=== PATIENT | male | born 1960 | race Caucasian/White ===

== ENCOUNTER 2024-07-19 16:05 | Outpatient (CLI) | payer MEDICARE, SELFPAY ==
[2024-07-19 16:32] LABS: Abs Immature Grans 0.01 10^3/uL (0.0-0.06); Absolute Basophil Count 0.04 10^3/uL (0.0-0.2); Absolute Eosinophil Count 0.22 10^3/uL (0.0-0.7); Absolute Lymphocyte Count 1.65 10^3/uL (1.2-3.4); Absolute Monocyte Count 0.64 10^3/uL (0.1-0.8); Absolute Neutrophil Count 3.91 10^3/uL (1.2-6.7); Basophils % 0.6 %; Eosinophils % 3.4 %; HCT 39.3 % (40.0-50.0); HGB 13.7 g/dL (13.5-17.5); Immature Grans % 0.2 %; Lymphocytes % 25.5 %; MCH 32.5 pg (27.0-33.0); MCHC 34.9 % (32.0-36.0); MCV 93 fL (80-95); MPV 10.6 fL (8.0-11.0); Monocytes % 9.9 %; Neutrophils % 60.4 %; Platelet Count 234 10^3/uL (130-400); RBC 4.21 10^6/uL (4.36-5.78); RDW-SD 44.1 fL; WBC 6.47 10^3/uL (4.4-10.8)
[2024-07-19 16:55] LABS: ALT 11 U/L (16-63); AST 19 U/L (15-37); Albumin 3.7 g/dL (3.4-5.0); Alkaline Phosphatase 71 U/L (46-116); Anion Gap 7.5 mmol/L (3-11); BUN 9 mg/dL (7-18); Bilirubin, Total 0.89 mg/dL (0.2-1.0); CO2 29.5 mmol/L (21.0-32.0); CREATININE 1.1 mg/dL (0.70-1.30); Calcium 9.2 mg/dL (8.5-10.1); Chloride 103 mmol/L (98-107); Estimated GFR 74.04 (mL/min/1.73m2); Glucose 103 mg/dL (74-106); Potassium 3.5 mmol/L (3.5-5.1); Sodium 140 mmol/L (136-145)
== END 2024-07-19 16:06 | disposition home or self-care (01) ==
LOC: LBO 16:09
PROVIDERS: Visit Provider Internal Medicine Hematology
DX: C01 Malignant neoplasm of base of tongue (principal)
CPT/HCPCS: 36415; 80053; 83735; 85025

== ENCOUNTER 2024-10-16 02:06 | Outpatient (RCR) | payer MEDICARE, SELFPAY ==
[2024-09-18] MEDS: Normal Saline Flush 10 ML SYR IVP (08:46)
[2024-09-18 09:25] LABS: Abs Immature Grans 0.01 10^3/uL (0.0-0.06); Absolute Basophil Count 0.03 10^3/uL (0.0-0.2); Absolute Eosinophil Count 0.26 10^3/uL (0.0-0.7); Absolute Monocyte Count 0.59 10^3/uL (0.1-0.8); Absolute Neutrophil Count 2.78 10^3/uL (1.2-6.7); Basophils % 0.6 %; Eosinophils % 5.1 %; HCT 37.6 % (40.0-50.0); HGB 12.5 g/dL (13.5-17.5); Immature Grans % 0.2 %; Lymphocytes % 27.6 %; MCH 31.8 pg (27.0-33.0); MCHC 33.2 % (32.0-36.0); MCV 96 fL (80-95); MPV 11.8 fL (8.0-11.0); Monocytes % 11.6 %; Neutrophils % 54.9 %; Platelet Count 211 10^3/uL (130-400); RBC 3.93 10^6/uL (4.36-5.78); RDW 12.6 % (11.8-14.1); WBC 5.07 10^3/uL (4.4-10.8)
[2024-09-18 09:38] LABS: ALT 12 U/L (16-63); AST 19 U/L (15-37); Albumin 3.3 g/dL (3.4-5.0); Alkaline Phosphatase 61 U/L (46-116); Anion Gap 5.6 mmol/L (3-11); BUN 12 mg/dL (7-18); Bilirubin, Total 0.79 mg/dL (0.2-1.0); CO2 32.4 mmol/L (21.0-32.0); CREATININE 0.9 mg/dL (0.70-1.30); Calcium 8.9 mg/dL (8.5-10.1); Chloride 106 mmol/L (98-107); Estimated GFR 94.19 (mL/min/1.73m2); Glucose 119 mg/dL (74-106); Potassium 3.4 mmol/L (3.5-5.1); Sodium 144 mmol/L (136-145); Total Protein 7.1 g/dL (6.4-8.2)
[2024-09-20] MEDS: Normal Saline Flush 10 ML SYR IVP (07:26)
[2024-09-20 07:47] LABS: Abs Immature Grans 0.02 10^3/uL (0.0-0.06); Absolute Basophil Count 0.03 10^3/uL (0.0-0.2); Absolute Eosinophil Count 0.05 10^3/uL (0.0-0.7); Absolute Lymphocyte Count 1.03 10^3/uL (1.2-3.4); Absolute Neutrophil Count 5.26 10^3/uL (1.2-6.7); Basophils % 0.4 %; Eosinophils % 0.7 %; HCT 34.8 % (40.0-50.0); HGB 11.7 g/dL (13.5-17.5); Immature Grans % 0.3 %; Lymphocytes % 14.5 %; MCH 32.1 pg (27.0-33.0); MCHC 33.6 % (32.0-36.0); MCV 95 fL (80-95); MPV 12.1 fL (8.0-11.0); Monocytes % 9.9 %; Neutrophils % 74.2 %; Platelet Count 191 10^3/uL (130-400); RBC 3.65 10^6/uL (4.36-5.78); RDW-SD 45.8 fL; WBC 7.09 10^3/uL (4.4-10.8)
[2024-09-20 08:10] LABS: ALT 55 U/L (16-63); AST 70 U/L (15-37); Alkaline Phosphatase 59 U/L (46-116); Anion Gap 8.4 mmol/L (3-11); BUN 16 mg/dL (7-18); Bilirubin, Total 0.73 mg/dL (0.2-1.0); CO2 27.6 mmol/L (21.0-32.0); Calcium 8.5 mg/dL (8.5-10.1); Chloride 106 mmol/L (98-107); Estimated GFR 83.01 (mL/min/1.73m2); Glucose 137 mg/dL (74-106); Magnesium 1.9 mg/dL (1.8-2.4); Potassium 3.9 mmol/L (3.5-5.1); Sodium 142 mmol/L (136-145); Total Protein 6.5 g/dL (6.4-8.2)
[2024-09-22] MEDS: Normal Saline Flush 10 ML SYR IVP (07:52)
[2024-09-22 07:58] LABS: Abs Immature Grans 0.02 10^3/uL (0.0-0.06); Absolute Basophil Count 0.01 10^3/uL (0.0-0.2); Absolute Lymphocyte Count 0.55 10^3/uL (1.2-3.4); Absolute Monocyte Count 0.41 10^3/uL (0.1-0.8); Absolute Neutrophil Count 5.96 10^3/uL (1.2-6.7); Basophils % 0.1 %; HCT 34.1 % (40.0-50.0); HGB 11.7 g/dL (13.5-17.5); Immature Grans % 0.3 %; Lymphocytes % 7.9 %; MCH 31.6 pg (27.0-33.0); MCHC 34.3 % (32.0-36.0); MCV 92 fL (80-95); MPV 12.1 fL (8.0-11.0); Monocytes % 5.9 %; Neutrophils % 85.8 %; Platelet Count 186 10^3/uL (130-400); RDW 12.7 % (11.8-14.1); WBC 6.95 10^3/uL (4.4-10.8)
[2024-09-22 08:15] LABS: ALT 31 U/L (16-63); AST 28 U/L (15-37); Alkaline Phosphatase 57 U/L (46-116); Anion Gap 11.6 mmol/L (3-11); BUN 22 mg/dL (7-18); Bilirubin, Total 0.67 mg/dL (0.2-1.0); CO2 26.4 mmol/L (21.0-32.0); CREATININE 1.1 mg/dL (0.70-1.30); Calcium 8.6 mg/dL (8.5-10.1); Chloride 103 mmol/L (98-107); Estimated GFR 74.04 (mL/min/1.73m2); Glucose 148 mg/dL (74-106); Magnesium 1.6 mg/dL (1.8-2.4); Potassium 3.4 mmol/L (3.5-5.1); Sodium 141 mmol/L (136-145); Total Protein 6.4 g/dL (6.4-8.2)
[2024-09-25] MEDS: Normal Saline Flush 10 ML SYR IVP (08:09)
[2024-09-25 08:26] LABS: Abs Immature Grans 0.03 10^3/uL (0.0-0.06); Absolute Basophil Count 0.01 10^3/uL (0.0-0.2); Absolute Eosinophil Count 0.03 10^3/uL (0.0-0.7); Absolute Lymphocyte Count 0.73 10^3/uL (1.2-3.4); Basophils % 0.2 %; Eosinophils % 0.6 %; HCT 34.6 % (40.0-50.0); HGB 11.6 g/dL (13.5-17.5); Immature Grans % 0.6 %; Lymphocytes % 14.9 %; MCH 31.2 pg (27.0-33.0); MCHC 33.5 % (32.0-36.0); MCV 93 fL (80-95); MPV 12.1 fL (8.0-11.0); Monocytes % 8.2 %; Neutrophils % 75.5 %; Platelet Count 154 10^3/uL (130-400); RBC 3.72 10^6/uL (4.36-5.78); RDW 12.4 % (11.8-14.1); RDW-SD 42.5 fL
[2024-09-25 08:38] LABS: ALT 24 U/L (16-63); AST 25 U/L (15-37); Albumin 2.8 g/dL (3.4-5.0); Alkaline Phosphatase 57 U/L (46-116); Anion Gap 7.9 mmol/L (3-11); BUN 12 mg/dL (7-18); Bilirubin, Total 0.76 mg/dL (0.2-1.0); CO2 29.1 mmol/L (21.0-32.0); CREATININE 0.8 mg/dL (0.70-1.30); Calcium 8.5 mg/dL (8.5-10.1); Chloride 103 mmol/L (98-107); Estimated GFR 97.61 (mL/min/1.73m2); Glucose 105 mg/dL (74-106); Magnesium 1.7 mg/dL (1.8-2.4); Potassium 3.1 mmol/L (3.5-5.1); Sodium 140 mmol/L (136-145); Total Protein 6.2 g/dL (6.4-8.2)
[2024-10-02] MEDS: Normal Saline Flush 10 ML SYR IVP (07:42)
[2024-10-02 08:48] LABS: Absolute Basophil Count 0.01 10^3/uL (0.0-0.2); Absolute Eosinophil Count 0.01 10^3/uL (0.0-0.7); Absolute Lymphocyte Count 0.48 10^3/uL (1.2-3.4); Absolute Monocyte Count 0.26 10^3/uL (0.1-0.8); Absolute Neutrophil Count 2.06 10^3/uL (1.2-6.7); Basophils % 0.4 %; Eosinophils % 0.4 %; HCT 37.4 % (40.0-50.0); HGB 12.7 g/dL (13.5-17.5); MCH 31.6 pg (27.0-33.0); MCV 93 fL (80-95); MPV 10.8 fL (8.0-11.0); Monocytes % 9.2 %; Platelet Count 165 10^3/uL (130-400); RBC 4.02 10^6/uL (4.36-5.78); RDW 12.4 % (11.8-14.1); RDW-SD 42.7 fL; WBC 2.82 10^3/uL (4.4-10.8)
[2024-10-02 09:05] LABS: ALT 12 U/L (16-63); AST 17 U/L (15-37); Albumin 2.9 g/dL (3.4-5.0); Alkaline Phosphatase 48 U/L (46-116); Anion Gap 7.8 mmol/L (3-11); BUN 7 mg/dL (7-18); CO2 33.2 mmol/L (21.0-32.0); CREATININE 0.8 mg/dL (0.70-1.30); Calcium 8.7 mg/dL (8.5-10.1); Chloride 103 mmol/L (98-107); Estimated GFR 97.61 (mL/min/1.73m2); Glucose 109 mg/dL (74-106); Magnesium 1.6 mg/dL (1.8-2.4); Potassium 3.2 mmol/L (3.5-5.1); Sodium 144 mmol/L (136-145); Total Protein 6.1 g/dL (6.4-8.2)
[2024-10-09 08:45] LABS: Absolute Basophil Count 0.01 10^3/uL (0.0-0.2); Absolute Eosinophil Count 0.01 10^3/uL (0.0-0.7); Absolute Lymphocyte Count 0.34 10^3/uL (1.2-3.4); Absolute Monocyte Count 0.28 10^3/uL (0.1-0.8); Basophils % 0.9 %; Eosinophils % 0.9 %; HGB 13.6 g/dL (13.5-17.5); Lymphocytes % 32.1 %; MCH 31.6 pg (27.0-33.0); MCHC 33.2 % (32.0-36.0); MCV 95 fL (80-95); MPV 10.6 fL (8.0-11.0); Monocytes % 26.4 %; Platelet Count 156 10^3/uL (130-400); RBC 4.31 10^6/uL (4.36-5.78); RDW 13.2 % (11.8-14.1); RDW-SD 45.5 fL
[2024-10-09 09:01] LABS: ALT 10 U/L (16-63); AST 26 U/L (15-37); Albumin 3.2 g/dL (3.4-5.0); Alkaline Phosphatase 46 U/L (46-116); BUN 12 mg/dL (7-18); Bilirubin, Total 0.44 mg/dL (0.2-1.0); Calcium 9.2 mg/dL (8.5-10.1); Chloride 106 mmol/L (98-107); Estimated GFR 83.01 (mL/min/1.73m2); Glucose 91 mg/dL (74-106); Magnesium 1.8 mg/dL (1.8-2.4); Potassium 3.8 mmol/L (3.5-5.1); Sodium 145 mmol/L (136-145); Total Protein 6.7 g/dL (6.4-8.2)
[2024-10-09 09:06] LABS: Neutrophils % 39.7 %
[2024-10-09 09:39] LABS: Absolute Neutrophil Count 0.42 10^3/uL (1.2-6.7); WBC 1.06 10^3/uL (4.4-10.8)
[2024-10-09] MEDS: Normal Saline Flush 10 ML SYR IVP (11:52)
[2024-10-16] MEDS: Normal Saline Flush 10 ML SYR IVP (08:35)
[2024-10-16 08:48] LABS: Abs Immature Grans 0.02 10^3/uL (0.0-0.06); Absolute Basophil Count 0.01 10^3/uL (0.0-0.2); Absolute Eosinophil Count 0.01 10^3/uL (0.0-0.7); Absolute Lymphocyte Count 0.28 10^3/uL (1.2-3.4); Absolute Monocyte Count 0.31 10^3/uL (0.1-0.8); Absolute Neutrophil Count 2.22 10^3/uL (1.2-6.7); Basophils % 0.4 %; Eosinophils % 0.4 %; HCT 39.9 % (40.0-50.0); HGB 13.6 g/dL (13.5-17.5); Immature Grans % 0.7 %; Lymphocytes % 9.8 %; MCH 31.5 pg (27.0-33.0); MCHC 34.1 % (32.0-36.0); MCV 92 fL (80-95); Monocytes % 10.9 %; Neutrophils % 77.8 %; Platelet Count 156 10^3/uL (130-400); RBC 4.32 10^6/uL (4.36-5.78); RDW 13.4 % (11.8-14.1); RDW-SD 45.1 fL; WBC 2.85 10^3/uL (4.4-10.8)
[2024-10-16 09:34] LABS: ALT 11 U/L (16-63); AST 25 U/L (15-37); Albumin 2.7 g/dL (3.4-5.0); Alkaline Phosphatase 52 U/L (46-116); Anion Gap 9.9 mmol/L (3-11); BUN 16 mg/dL (7-18); Bilirubin, Total 0.67 mg/dL (0.2-1.0); CO2 31.1 mmol/L (21.0-32.0); CREATININE 0.9 mg/dL (0.70-1.30); Chloride 105 mmol/L (98-107); Estimated GFR 94.19 (mL/min/1.73m2); Glucose 106 mg/dL (74-106); Magnesium 1.8 mg/dL (1.8-2.4); Potassium 3.4 mmol/L (3.5-5.1); Sodium 146 mmol/L (136-145); Total Protein 6.7 g/dL (6.4-8.2)
== END 2024-10-17 23:59 | disposition home or self-care (01) ==
LOC: INF 02:06
PROVIDERS: Visit Provider Internal Medicine Hematology
DX: C01 Malignant neoplasm of base of tongue (principal)
CPT/HCPCS: 36591; 80053; 83735; 85025

== ENCOUNTER 2024-11-13 10:05 | Outpatient (RCR) | payer MEDICARE, MEDICAID, SELFPAY ==
[2024-10-23] MEDS: Normal Saline Flush 10 ML SYR IVP (08:34)
[2024-10-23 08:51] LABS: Abs Immature Grans 0.04 10^3/uL (0.0-0.06); Absolute Basophil Count 0.02 10^3/uL (0.0-0.2); Absolute Eosinophil Count 0.02 10^3/uL (0.0-0.7); Absolute Lymphocyte Count 0.46 10^3/uL (1.2-3.4); Absolute Monocyte Count 0.56 10^3/uL (0.1-0.8); Absolute Neutrophil Count 2.93 10^3/uL (1.2-6.7); Basophils % 0.5 %; Eosinophils % 0.5 %; HCT 38.7 % (40.0-50.0); HGB 13.1 g/dL (13.5-17.5); Lymphocytes % 11.4 %; MCH 31.5 pg (27.0-33.0); MCHC 33.9 % (32.0-36.0); MCV 93 fL (80-95); MPV 10.3 fL (8.0-11.0); Monocytes % 13.9 %; Neutrophils % 72.7 %; Platelet Count 238 10^3/uL (130-400); RBC 4.16 10^6/uL (4.36-5.78); RDW 13.3 % (11.8-14.1); RDW-SD 45.2 fL; WBC 4.03 10^3/uL (4.4-10.8)
[2024-10-23 09:18] LABS: ALT 17 U/L (16-63); AST 20 U/L (15-37); Albumin 2.8 g/dL (3.4-5.0); Alkaline Phosphatase 49 U/L (46-116); Anion Gap 2.6 mmol/L (3-11); BUN 10 mg/dL (7-18); Bilirubin, Total 0.84 mg/dL (0.2-1.0); CO2 34.4 mmol/L (21.0-32.0); CREATININE 0.9 mg/dL (0.70-1.30); Calcium 8.9 mg/dL (8.5-10.1); Chloride 109 mmol/L (98-107); Estimated GFR 94.19 (mL/min/1.73m2); Glucose 106 mg/dL (74-106); Magnesium 1.9 mg/dL (1.8-2.4); Potassium 3.3 mmol/L (3.5-5.1); Sodium 146 mmol/L (136-145); Total Protein 6.3 g/dL (6.4-8.2)
[2024-10-24 08:52] LABS: Abs Immature Grans 0.02 10^3/uL (0.0-0.06); Absolute Basophil Count 0.02 10^3/uL (0.0-0.2); Absolute Eosinophil Count 0.01 10^3/uL (0.0-0.7); Absolute Lymphocyte Count 0.23 10^3/uL (1.2-3.4); Absolute Monocyte Count 0.49 10^3/uL (0.1-0.8); Absolute Neutrophil Count 2.89 10^3/uL (1.2-6.7); Basophils % 0.5 %; Eosinophils % 0.3 %; HCT 35.7 % (40.0-50.0); Immature Grans % 0.5 %; Lymphocytes % 6.3 %; MCH 31.3 pg (27.0-33.0); MCHC 33.6 % (32.0-36.0); MCV 93 fL (80-95); MPV 10.7 fL (8.0-11.0); Monocytes % 13.4 %; Platelet Count 199 10^3/uL (130-400); RBC 3.83 10^6/uL (4.36-5.78); RDW 13.4 % (11.8-14.1); WBC 3.66 10^3/uL (4.4-10.8)
[2024-10-24 09:08] LABS: ALT 19 U/L (16-63); AST 24 U/L (15-37); Albumin 2.3 g/dL (3.4-5.0); Alkaline Phosphatase 49 U/L (46-116); Anion Gap 1.6 mmol/L (3-11); BUN 10 mg/dL (7-18); Bilirubin, Total 0.76 mg/dL (0.2-1.0); CO2 33.4 mmol/L (21.0-32.0); CREATININE 0.8 mg/dL (0.70-1.30); Calcium 8.1 mg/dL (8.5-10.1); Chloride 108 mmol/L (98-107); Estimated GFR 97.61 (mL/min/1.73m2); Glucose 99 mg/dL (74-106); Magnesium 1.8 mg/dL (1.8-2.4); Potassium 3.1 mmol/L (3.5-5.1); Sodium 143 mmol/L (136-145); Total Protein 5.8 g/dL (6.4-8.2)
[2024-10-26 08:26] LABS: Abs Immature Grans 0.01 10^3/uL (0.0-0.06); Absolute Basophil Count 0.02 10^3/uL (0.0-0.2); Absolute Eosinophil Count 0.02 10^3/uL (0.0-0.7); Absolute Lymphocyte Count 0.29 10^3/uL (1.2-3.4); Absolute Monocyte Count 0.44 10^3/uL (0.1-0.8); Absolute Neutrophil Count 2.07 10^3/uL (1.2-6.7); Basophils % 0.7 %; Eosinophils % 0.7 %; HCT 36.8 % (40.0-50.0); HGB 12.3 g/dL (13.5-17.5); Immature Grans % 0.4 %; Lymphocytes % 10.2 %; MCH 31.3 pg (27.0-33.0); MCHC 33.4 % (32.0-36.0); MCV 94 fL (80-95); Monocytes % 15.4 %; Neutrophils % 72.6 %; Platelet Count 210 10^3/uL (130-400); RBC 3.93 10^6/uL (4.36-5.78); RDW 13.4 % (11.8-14.1); RDW-SD 46.1 fL; WBC 2.85 10^3/uL (4.4-10.8)
[2024-10-26] MEDS: Normal Saline Flush 10 ML SYR IVP (08:29)
[2024-10-26 08:41] LABS: ALT 17 U/L (16-63); AST 26 U/L (15-37); Albumin 2.4 g/dL (3.4-5.0); Alkaline Phosphatase 44 U/L (46-116); Anion Gap 5.7 mmol/L (3-11); BUN 9 mg/dL (7-18); Bilirubin, Total 0.96 mg/dL (0.2-1.0); CO2 32.3 mmol/L (21.0-32.0); CREATININE 0.8 mg/dL (0.70-1.30); Calcium 8.1 mg/dL (8.5-10.1); Chloride 104 mmol/L (98-107); Estimated GFR 97.61 (mL/min/1.73m2); Glucose 85 mg/dL (74-106); Magnesium 1.4 mg/dL (1.8-2.4); Potassium 3.2 mmol/L (3.5-5.1); Sodium 142 mmol/L (136-145); Total Protein 5.5 g/dL (6.4-8.2)
[2024-10-27] MEDS: Normal Saline Flush 10 ML SYR IVP (07:27)
[2024-10-27 08:14] LABS: Abs Immature Grans 0.01 10^3/uL (0.0-0.06); Absolute Basophil Count 0.03 10^3/uL (0.0-0.2); Absolute Eosinophil Count 0.01 10^3/uL (0.0-0.7); Absolute Lymphocyte Count 0.27 10^3/uL (1.2-3.4); Absolute Monocyte Count 0.34 10^3/uL (0.1-0.8); Basophils % 1.1 %; Eosinophils % 0.4 %; HCT 36.2 % (40.0-50.0); HGB 12.3 g/dL (13.5-17.5); Immature Grans % 0.4 %; Lymphocytes % 9.8 %; MCH 31.4 pg (27.0-33.0); MCV 92 fL (80-95); MPV 11.6 fL (8.0-11.0); Monocytes % 12.3 %; Platelet Count 213 10^3/uL (130-400); RBC 3.92 10^6/uL (4.36-5.78); RDW 13.5 % (11.8-14.1); WBC 2.76 10^3/uL (4.4-10.8)
[2024-10-27 08:31] LABS: ALT 18 U/L (16-63); AST 29 U/L (15-37); Albumin 2.7 g/dL (3.4-5.0); Alkaline Phosphatase 49 U/L (46-116); Anion Gap 3.4 mmol/L (3-11); BUN 10 mg/dL (7-18); Bilirubin, Total 0.94 mg/dL (0.2-1.0); CO2 33.6 mmol/L (21.0-32.0); CREATININE 0.8 mg/dL (0.70-1.30); Calcium 8.6 mg/dL (8.5-10.1); Chloride 104 mmol/L (98-107); Estimated GFR 97.61 (mL/min/1.73m2); Glucose 89 mg/dL (74-106); Magnesium 1.7 mg/dL (1.8-2.4); Potassium 3.8 mmol/L (3.5-5.1); Sodium 141 mmol/L (136-145)
[2024-10-30] MEDS: Normal Saline Flush 10 ML SYR IVP (07:28)
[2024-10-30 07:56] LABS: Abs Immature Grans 0.03 10^3/uL (0.0-0.06); Absolute Basophil Count 0.03 10^3/uL (0.0-0.2); Absolute Lymphocyte Count 0.35 10^3/uL (1.2-3.4); Absolute Monocyte Count 0.49 10^3/uL (0.1-0.8); Absolute Neutrophil Count 4.11 10^3/uL (1.2-6.7); Basophils % 0.6 %; HCT 37.4 % (40.0-50.0); HGB 12.7 g/dL (13.5-17.5); Immature Grans % 0.6 %; MCH 31.1 pg (27.0-33.0); MCV 92 fL (80-95); MPV 11.4 fL (8.0-11.0); Monocytes % 9.8 %; Platelet Count 232 10^3/uL (130-400); RBC 4.08 10^6/uL (4.36-5.78); RDW 13.4 % (11.8-14.1); RDW-SD 44.7 fL; WBC 5.01 10^3/uL (4.4-10.8)
[2024-10-30 08:11] LABS: ALT 18 U/L (16-63); AST 27 U/L (15-37); Albumin 2.8 g/dL (3.4-5.0); Alkaline Phosphatase 53 U/L (46-116); Anion Gap 8.6 mmol/L (3-11); BUN 16 mg/dL (7-18); Bilirubin, Total 1.38 mg/dL (0.2-1.0); CO2 31.4 mmol/L (21.0-32.0); Calcium 9.2 mg/dL (8.5-10.1); Chloride 103 mmol/L (98-107); Estimated GFR 83.01 (mL/min/1.73m2); Glucose 91 mg/dL (74-106); Magnesium 1.5 mg/dL (1.8-2.4); Potassium 3.7 mmol/L (3.5-5.1); Sodium 143 mmol/L (136-145); Total Protein 6.4 g/dL (6.4-8.2)
[2024-11-06] MEDS: Normal Saline Flush 10 ML SYR IVP (07:47)
[2024-11-06 08:20] LABS: Absolute Basophil Count 0.01 10^3/uL (0.0-0.2); Absolute Eosinophil Count 0.01 10^3/uL (0.0-0.7); Absolute Lymphocyte Count 0.28 10^3/uL (1.2-3.4); Absolute Monocyte Count 0.31 10^3/uL (0.1-0.8); Absolute Neutrophil Count 1.72 10^3/uL (1.2-6.7); Basophils % 0.4 %; Eosinophils % 0.4 %; HCT 34.6 % (40.0-50.0); HGB 11.7 g/dL (13.5-17.5); MCH 31.3 pg (27.0-33.0); MCHC 33.8 % (32.0-36.0); MCV 93 fL (80-95); MPV 11.4 fL (8.0-11.0); Monocytes % 13.3 %; Neutrophils % 73.9 %; Platelet Count 161 10^3/uL (130-400); RBC 3.74 10^6/uL (4.36-5.78); RDW 14.5 % (11.8-14.1); RDW-SD 47.7 fL; WBC 2.33 10^3/uL (4.4-10.8)
[2024-11-06 08:32] LABS: ALT 12 U/L (16-63); AST 19 U/L (15-37); Albumin 2.8 g/dL (3.4-5.0); Alkaline Phosphatase 44 U/L (46-116); Anion Gap 6.1 mmol/L (3-11); BUN 11 mg/dL (7-18); CO2 31.9 mmol/L (21.0-32.0); CREATININE 0.8 mg/dL (0.70-1.30); Calcium 8.5 mg/dL (8.5-10.1); Chloride 107 mmol/L (98-107); Estimated GFR 97.61 (mL/min/1.73m2); Glucose 79 mg/dL (74-106); Magnesium 1.5 mg/dL (1.8-2.4); Potassium 3.7 mmol/L (3.5-5.1); Sodium 145 mmol/L (136-145); Total Protein 6.1 g/dL (6.4-8.2)
[2024-11-13] MEDS: Normal Saline Flush 10 ML SYR IVP (10:15)
[2024-11-13 10:25] LABS: Abs Immature Grans 0.01 10^3/uL (0.0-0.06); Absolute Basophil Count 0.02 10^3/uL (0.0-0.2); Absolute Eosinophil Count 0.01 10^3/uL (0.0-0.7); Absolute Monocyte Count 0.31 10^3/uL (0.1-0.8); Absolute Neutrophil Count 0.86 10^3/uL (1.2-6.7); Basophils % 1.4 %; Eosinophils % 0.7 %; HCT 34.5 % (40.0-50.0); HGB 11.7 g/dL (13.5-17.5); Immature Grans % 0.7 %; Lymphocytes % 14.2 %; MCH 31.5 pg (27.0-33.0); MCHC 33.9 % (32.0-36.0); MCV 93 fL (80-95); MPV 10.3 fL (8.0-11.0); Platelet Count 190 10^3/uL (130-400); RBC 3.71 10^6/uL (4.36-5.78); RDW 15.7 % (11.8-14.1); RDW-SD 52.1 fL
[2024-11-13 10:42] LABS: ALT 12 U/L (16-63); AST 17 U/L (15-37); Albumin 2.9 g/dL (3.4-5.0); Alkaline Phosphatase 38 U/L (46-116); BUN 11 mg/dL (7-18); Bilirubin, Total 0.87 mg/dL (0.2-1.0); CREATININE 0.8 mg/dL (0.70-1.30); Chloride 102 mmol/L (98-107); Estimated GFR 97.61 (mL/min/1.73m2); Glucose 88 mg/dL (74-106); Magnesium 1.4 mg/dL (1.8-2.4); Potassium 3.7 mmol/L (3.5-5.1); Sodium 140 mmol/L (136-145); Total Protein 5.9 g/dL (6.4-8.2)
[2024-11-13 10:49] LABS: Diff Comment Diff Reviewed; RBC Morphology Normal; WBC 1.41 10^3/uL (4.4-10.8)
== END 2024-11-17 23:59 | disposition home or self-care (01) ==
LOC: INF 10:05
PROVIDERS: Visit Provider Internal Medicine Hematology
DX: C01 Malignant neoplasm of base of tongue (principal)
CPT/HCPCS: 36591; 80053; 83735; 85025

== ENCOUNTER 2024-12-04 01:44 | Outpatient (RCR) | payer MEDICARE, MEDICAID, SELFPAY ==
[2024-11-20] MEDS: Normal Saline Flush 10 ML SYR IVP (12:09)
[2024-11-20 12:15] LABS: Abs Immature Grans 0.02 10^3/uL (0.0-0.06); Absolute Basophil Count 0.02 10^3/uL (0.0-0.2); Absolute Eosinophil Count 0.03 10^3/uL (0.0-0.7); Absolute Lymphocyte Count 0.33 10^3/uL (1.2-3.4); Absolute Neutrophil Count 1.77 10^3/uL (1.2-6.7); Basophils % 0.8 %; Eosinophils % 1.2 %; HCT 33.9 % (40.0-50.0); HGB 11.4 g/dL (13.5-17.5); Immature Grans % 0.8 %; Lymphocytes % 13.4 %; MCH 32.3 pg (27.0-33.0); MCHC 33.6 % (32.0-36.0); MCV 96 fL (80-95); MPV 10.2 fL (8.0-11.0); Monocytes % 12.1 %; Neutrophils % 71.7 %; Platelet Count 165 10^3/uL (130-400); RBC 3.53 10^6/uL (4.36-5.78); RDW 16.3 % (11.8-14.1); RDW-SD 57.1 fL; WBC 2.47 10^3/uL (4.4-10.8)
[2024-11-20 12:29] LABS: ALT 13 U/L (16-63); AST 20 U/L (15-37); Albumin 2.9 g/dL (3.4-5.0); Alkaline Phosphatase 35 U/L (46-116); Anion Gap 5.3 mmol/L (3-11); BUN 10 mg/dL (7-18); Bilirubin, Total 0.86 mg/dL (0.2-1.0); CO2 31.7 mmol/L (21.0-32.0); CREATININE 0.8 mg/dL (0.70-1.30); Calcium 9.1 mg/dL (8.5-10.1); Chloride 106 mmol/L (98-107); Estimated GFR 97.61 (mL/min/1.73m2); Glucose 94 mg/dL (74-106); Magnesium 1.6 mg/dL (1.8-2.4); Potassium 3.9 mmol/L (3.5-5.1); Sodium 143 mmol/L (136-145); Total Protein 5.9 g/dL (6.4-8.2)
[2024-11-27] MEDS: Normal Saline Flush 10 ML SYR IVP (12:25)
[2024-11-27 12:37] LABS: Abs Immature Grans 0.01 10^3/uL (0.0-0.06); Absolute Basophil Count 0.02 10^3/uL (0.0-0.2); Absolute Eosinophil Count 0.05 10^3/uL (0.0-0.7); Absolute Lymphocyte Count 0.42 10^3/uL (1.2-3.4); Absolute Monocyte Count 0.31 10^3/uL (0.1-0.8); Absolute Neutrophil Count 1.51 10^3/uL (1.2-6.7); Basophils % 0.9 %; Eosinophils % 2.2 %; HCT 30.6 % (40.0-50.0); HGB 10.2 g/dL (13.5-17.5); Immature Grans % 0.4 %; Lymphocytes % 18.1 %; MCH 32.5 pg (27.0-33.0); MCHC 33.3 % (32.0-36.0); MCV 98 fL (80-95); MPV 10.7 fL (8.0-11.0); Monocytes % 13.4 %; Platelet Count 183 10^3/uL (130-400); RBC 3.14 10^6/uL (4.36-5.78); RDW 17.2 % (11.8-14.1); RDW-SD 60.7 fL; WBC 2.32 10^3/uL (4.4-10.8)
[2024-11-27 12:55] LABS: ALT 13 U/L (16-63); AST 17 U/L (15-37); Albumin 2.9 g/dL (3.4-5.0); Alkaline Phosphatase 38 U/L (46-116); Anion Gap 3.1 mmol/L (3-11); BUN 11 mg/dL (7-18); Bilirubin, Total 0.67 mg/dL (0.2-1.0); CO2 32.9 mmol/L (21.0-32.0); CREATININE 0.8 mg/dL (0.70-1.30); Chloride 106 mmol/L (98-107); Estimated GFR 97.61 (mL/min/1.73m2); Glucose 90 mg/dL (74-106); Magnesium 1.7 mg/dL (1.8-2.4); Potassium 3.7 mmol/L (3.5-5.1); Sodium 142 mmol/L (136-145); Total Protein 6.1 g/dL (6.4-8.2)
[2024-12-04] MEDS: Normal Saline Flush 10 ML SYR IVP (08:26)
[2024-12-04 08:50] LABS: Abs Immature Grans 0.01 10^3/uL (0.0-0.06); Absolute Basophil Count 0.02 10^3/uL (0.0-0.2); Absolute Eosinophil Count 0.08 10^3/uL (0.0-0.7); Absolute Lymphocyte Count 0.37 10^3/uL (1.2-3.4); Absolute Monocyte Count 0.39 10^3/uL (0.1-0.8); Absolute Neutrophil Count 1.45 10^3/uL (1.2-6.7); Basophils % 0.9 %; Eosinophils % 3.4 %; HCT 30.3 % (40.0-50.0); HGB 10.1 g/dL (13.5-17.5); Immature Grans % 0.4 %; Lymphocytes % 15.9 %; MCH 32.6 pg (27.0-33.0); MCHC 33.3 % (32.0-36.0); MCV 98 fL (80-95); Monocytes % 16.8 %; Neutrophils % 62.6 %; Platelet Count 210 10^3/uL (130-400); RDW 17.3 % (11.8-14.1); WBC 2.32 10^3/uL (4.4-10.8)
[2024-12-04 09:07] LABS: ALT 11 U/L (16-63); AST 14 U/L (15-37); Albumin 2.9 g/dL (3.4-5.0); Alkaline Phosphatase 43 U/L (46-116); Anion Gap 4.7 mmol/L (3-11); BUN 8 mg/dL (7-18); Bilirubin, Total 0.61 mg/dL (0.2-1.0); CO2 30.3 mmol/L (21.0-32.0); CREATININE 0.8 mg/dL (0.70-1.30); Calcium 8.9 mg/dL (8.5-10.1); Chloride 107 mmol/L (98-107); Estimated GFR 97.61 (mL/min/1.73m2); Glucose 89 mg/dL (74-106); Magnesium 1.6 mg/dL (1.8-2.4); Potassium 3.5 mmol/L (3.5-5.1); Sodium 142 mmol/L (136-145)
== END 2024-12-15 23:59 | disposition home or self-care (01) ==
LOC: INF 01:44
PROVIDERS: Visit Provider Internal Medicine Hematology
DX: C01 Malignant neoplasm of base of tongue (principal)
CPT/HCPCS: 36591; 80053; 83735; 85025

== ENCOUNTER 2024-12-27 03:52 | Outpatient (CLI) | payer MEDICARE, SELFPAY ==
--- NOTE | 2024-12-27 | DI.RAD_ITS ---
Exam(s) RF MODIFIED SPEECH BA SWALLOW TECHNIQUE: Modified barium swallow was performed in conjunction with speech pathology. CONTRAST MATERIAL: Oral barium contrast was administered. COMPARISON: No exams were available for comparison FINDINGS: Note that this is not a dedicated esophagram, distal esophagus not evaluated. There is no evidence of aspiration of thick or thin liquids or barium pudding. The patient did have difficulty with the movement of barium pudding orally. Speech pathology report to follow. IMPRESSION: No evidence of aspiration. RADIATION DOSE DELIVERED: casimiro Mckinney=19.5 mGy
[2024-12-27] MEDS: Barium Sulfate 81% w/w for Oral Suspension 148 GM BTL 48 GM PO (15:15)
[2024-12-27] MEDS: Barium Sulfate 40% W/V 240 ML BTL 20 ML PO (15:16)
[2024-12-27] MEDS: Barium Sulfate Oral Paste 40% W/V 230 ML TUBE 10 ML PO (15:17)
--- NOTE | 2024-12-27 16:21 | ST.MBS ---
Date of Service Date of service: 12/27/24 Time of Service: 14:30 Modified Barium Swallow Study Findings: Video fluoroscopic Swallowing Evaluation (VFSE) / Modified Barium Swallow Study (MBSS) Speech Language Pathology Report Patient [place]FSE/[place] [place] given difficulty swallowing solids in setting of recently completed chemo/radiation. 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 He completed radiation therapy and low dose concurrent weekly cisplatin in late October 2024. Patient also with a history of eusinophilic esphagitis and esophageal stenosis, followed by GI for dilations in years past. At baseline he had difficulty with dry solids. Patient had a feeding tube placed for treatment but did not use it initially. During the course of treatment, patient became reliant on G-tube for nutrition and remains reliant now almost 2 months out. Patient reported increasing difficulty swallowing solid textures and even thickened liquids throughout treatment. He reports tolerating some thin liquids well, but appears to be very sensate to any residue or particulate matter even with liquids. He reports gagging and sometimes regurgitating foods if they stick in his throat. IMPRESSIONS: Moderate oral/pharyngeal/esophageal dysphagia. Characterized by difficulty with a/p transport/tongue motion initiation (significant delays), poor tongue base retraction, edematous epiglottis with minimal inversion, and reduced UES distension with presence of CP bar and ?proximal esophageal webbing. Overall, maximum laryngeal closure and UES distension at height of swallow appears very brief, which, in combination with hyperpharyngeal impairments and reduced UES distension, results in significant pharyngeal (especially vallecular) residue. While the patient was able to clear puree boluses with 2-3 extra swallows and liquid wash, he is incredibly sensate to residue which can lead to gagging, regurgitation, and refusal. Likely the patient is experiencing a heightened sensory response to pharyngeal and even oral residue which is also exacerbated by xerostomia and dysgeusia. Additionally, there is the complicating factor of distal esophageal stenosis which may be causing further referred sensation of pharyngeal stasis. While there was one instance of minor aspiration of thin liquids (initial swallow) prior to (delayed) pharyngeal onset in setting of instructions to complete oral hold, this was not replicated with further naturalistic swallow trials and is not likely to represent significant risk for pulmonary complication. Further liquid trials were more timely and did not result in significant penetration or any aspiration. Patient appears to be at low risk for potential aspiration PNA and/or pulmonary compromise and high risk for malnutrition, moderate risk for dehydration. Diet modification is indicated; non-oral nutrition is indicated, however, this is significantly impacted by sensory perception and discomfort with swallowing. With extra time and effort, patient would likely be able to transition to fully oral diet if he is able to tolerate it from a sensory perspective. . Swallow prognosis is good-fair given: Positive prognostic factors: Severity, Time since onset, Effectiveness of trialed compensatory strategies, Negative prognostic factors: Motivation, Family/caregiver support, Surgical/anatomical factors, Sensory factors and pending patient/caregiver training in risk management as outlined, including use of trialed compensatory strategies. Patient appears to be a fair candidate for behavioral swallow rehabilitation. Unfortunately today's exam was limited due to patient having low tolerance/high discomfort with puree trials and unwillingness to take further puree or solid bolus or trial strategies and maneuvers. Consider repeat MBSS as needed to monitor for progression and for further strategy assessment. RECOMMENDATIONS: Diet Texture Recommendation:? IDDSI LEVEL SOLIDS 4-Pureed Solids LIQUIDS 0-Thin Liquids Please see further details at?[email or web address] MEDICATIONS Via G-Tube Diet texture modification is per patient's preference; please adjust diet textures at patient's discretion & collaboration with care team. Do not alter medications (e.g., cut)? without advice from your MD or pharmacist. Risk Management Strategies:? Behavioral reflux precautions, including upright position during + 90 mins after meals. Small bites, approx [id number] Small sips, approx 10 mL Alternate solids/liquids as able Multiple swallows per bolus to encourage clearance of pharyngeal stasis/residue Control risk factors for aspiration pneumonia via (a) thorough oral hygiene & (b) maintaining physical mobility as tolerated PLAN: Therapy: Recommend subsequent outpatient session with [facility] to review results of today's exam and develop treatment plan as appropriate. May consider the following: Oropharyngeal Exercises to target deficits noted in objective section above, Further Compensatory Strategy Training, Further Counseling re: Options for maintaining quality of life in context of dysphagia presentation Consider repeat MBSS as needed to monitor for progression and for further strategy assessment. ----- OBJECTIVE Videofluoroscopic Swallow Evaluation (VFSE/MBSS) was conducted in the lateral[ and [id number]] projection by Speech-Language Pathologist, in collaboration with Radiologist, to evaluate oropharyngeal swallow function. Anatomic view under fluoroscopy: Edematous epiglottis PO Barium Contrast Trials Oral barium water-soluble contrast was administered as follows: IDDSI Level 0 Varibar thin liquid (40% w/v) IDDSI Level 2 Varibar nectar thick/mildly thick liquid (40% w/v) IDDSI Level 4 Varibar pudding/pureed/extremely thick (40% w/v) MBSImP Component Scores: COMPONENT Scale SCORE 1 Lip closure (0-4) 0 Resulted in no labial escape 2 Hold Position (0-3) 0 Maintained a cohesive bolus between tongue to palatal seal 3 Bolus Preparation (0-4) 4 Solid withheld due to patient safety concerns related to oral impairment 4 Bolus Transport (0-4) 2 Was with slowed tongue motion 5 Oral Residue (0-4) 2 Was a collection on oral structures 6 Swallow Initiation (0-4) 1 3 Occurred when the bolus head was in valleculae (majority) Occurred when the bolus head was in pyriforms (initial trial) 7 Soft Palate Elevation (0-4) 0 Resulted in no bolus between soft palate and the pharyngeal wall 8 Laryngeal Elevation (0-3) 1 Was decreased with partial superior movement of thyroid cartilage/partial approximation of arytenoids to epiglottic petiole 9 Anterior Hyoid Motion (0-2) 1 Demonstrated partial anterior movement 10 Epiglottic Movement (0-2) 1 Resulted in partial inversion 11 Laryngeal Closure (0-2) 0 Was complete with no air or contrast in laryngeal vestibule 12 Pharyngeal Stripping Wave (0-2) 1 Was present, but diminished 13 Pharyngeal Contraction (0-3) 1 Was incomplete, with presence of pseudodiverticulae 14 PES Opening (0-3) 1 Demonstrated partial distension/partial duration, with partial obstruction of flow 15 Tongue Base Retraction (0-4) 3 Allowed a wide column of contrast or air between the retracted tongue base and the posterior pharyngeal wall 16 Pharyngeal Residue (0-4) 2 Was a collection of residue within or on pharyngeal structures 17 Esophageal Clearance (0-4) 2 Resulted in esophageal retention with retrograde flow below pharyngoesophageal segment Results: COMPONENT Scale SCORE 1 Oral Score (0-18) 8 2 Pharyngeal Score (0-29) 11 3 Esophageal Score (0-4) 2 Penetration-Aspiration Scale: COMPONENT Scale SCORE 1 Thin liquid (1-8) 8 1 (Initial trial) Contrast entered the airway, passed below the vocal folds, and no effort was made to eject. (All additional trials) Contrast did not enter the airway 2 [place] thick (1-8) 1 Contrast did not enter the airway 3 Honey thick (1-8) NA 4 Pudding thick (1-8) 1 Contrast did not enter the airway 5 Cookie (1-8) NA DIGEST: COMPONENT Scale SCORE 1 Thin Max PAS (1-8) 8 Contrast entered the airway, passed below the vocal folds, and no effort was made to eject. 2 [place] Max PAS (1-8) 1 Contrast did not enter the airway 3 Honey Max PAS (1-8) NA 4 Liquid Max PAS (1-8) 8 Maximum PAS Score over all liquid trials 5 Liquid Max Residue (0-3) 0 below 10% 6 Pudding Max PAS (1-8) 1 Contrast did not enter the airway 7 Pudding Max Residue (0-3) 1 10 - 49% 8 Cracker Max PAS (1-8) NA 9 Cracker Max Residue (0-3) NA 10 Frequency if PAS >= 3 (0-3) 1 Single+ (max PAS 7-8 with additional PAS 5-6) 11 Amount if PAS >= 5 (0-1) 0 Not gross Results: COMPONENT Scale SCORE 1 SAFETY GRADE (0-4) 2 Safety grade for swallowing based on patterns of aspiration or laryngeal penetration 2 EFFICIENCY GRADE (0-4) 1 Efficiency grade of swallowing based on patterns of pharyngeal residue 3 DIGEST (0-4) 2 Severity grade of pharyngeal dysphagia: 0 - Normal, 1 - Mild, 2 - Moderate, 3 - Severe, 4 - Life threatening 4 Max Exam PAS (1-8) 8 Maximum PAS Score over all bolus trials 5 Max Exam Residue (0-3) 1 Maximum Exam Residue over all bolus trials Trialed Compensatory Strategies & Outcome: Maneuvers Successful (+) Unsuccessful (-) Postures Successful (+) Unsuccessful (-) 3 second Preparatory Set? ?- Chin Tuck Posture? ? Cough? ? Posterior Head tilt? Reflexive? Cued? ?- ? ? Throat Clear? ? Head Tilt to? Reflexive? Left? Cued? Right? ? Saliva swallow? ?+ Head Turn/Rotate to? ? Supraglottic Swallow? Left? ? Super-supraglottic Swallow? Right? ? Bolus Modifications Successful (+) Unsuccessful (-) Delivery/Alternating Consistencies ? Follow with Liquid Wash + ? Follow with Solid Bolus? Delivery/Via Straw? ? Reduced Volume? ? Reduced Rate of Intake? ? Increased Viscosity? ?- Other:?? ? Thank you for allowing us to take part in this patient's care. Please feel free to contact the [facility] Speech Language Pathology Department with any questions/concerns.
== END 2024-12-27 04:12 ==
PROVIDERS: Visit Provider Speech-Language Pathologist
DX: C76.0 Malignant neoplasm of head, face and neck (principal); R13.14 Dysphagia, pharyngoesophageal phase
CPT/HCPCS: 92526; 74221

== ENCOUNTER 2025-01-15 08:00 | Outpatient (RCR) | payer MEDICARE, MEDICAID, SELFPAY ==
[2024-12-18] MEDS: Normal Saline Flush 10 ML SYR IVP (09:40)
[2024-12-18 09:44] LABS: Abs Immature Grans 0.02 10^3/uL (0.0-0.06); Absolute Basophil Count 0.05 10^3/uL (0.0-0.2); Absolute Eosinophil Count 0.44 10^3/uL (0.0-0.7); Absolute Lymphocyte Count 0.54 10^3/uL (1.2-3.4); Absolute Monocyte Count 0.55 10^3/uL (0.1-0.8); Absolute Neutrophil Count 3.36 10^3/uL (1.2-6.7); Eosinophils % 8.9 %; HGB 11.2 g/dL (13.5-17.5); Immature Grans % 0.4 %; Lymphocytes % 10.9 %; MCH 33.5 pg (27.0-33.0); MCHC 32.9 % (32.0-36.0); MCV 102 fL (80-95); MPV 11.3 fL (8.0-11.0); Monocytes % 11.1 %; Neutrophils % 67.7 %; Platelet Count 222 10^3/uL (130-400); RBC 3.34 10^6/uL (4.36-5.78); RDW 16.4 % (11.8-14.1); RDW-SD 61.7 fL; WBC 4.96 10^3/uL (4.4-10.8)
[2024-12-18 09:59] LABS: ALT 7 U/L (16-63); AST 14 U/L (15-37); Albumin 2.9 g/dL (3.4-5.0); Alkaline Phosphatase 57 U/L (46-116); Anion Gap 7.1 mmol/L (3-11); BUN 19 mg/dL (7-18); Bilirubin, Total 0.48 mg/dL (0.2-1.0); CO2 33.9 mmol/L (21.0-32.0); CREATININE 0.8 mg/dL (0.70-1.30); Calcium 9.1 mg/dL (8.5-10.1); Chloride 108 mmol/L (98-107); Estimated GFR 97.61 (mL/min/1.73m2); Glucose 149 mg/dL (74-106); Magnesium 1.8 mg/dL (1.8-2.4); Potassium 4.1 mmol/L (3.5-5.1); Sodium 149 mmol/L (136-145); Total Protein 6.4 g/dL (6.4-8.2)
[2025-01-01 09:21] LABS: Abs Immature Grans 0.02 10^3/uL (0.0-0.06); Absolute Basophil Count 0.03 10^3/uL (0.0-0.2); Absolute Eosinophil Count 0.59 10^3/uL (0.0-0.7); Absolute Lymphocyte Count 0.39 10^3/uL (1.2-3.4); Absolute Monocyte Count 0.56 10^3/uL (0.1-0.8); Absolute Neutrophil Count 3.59 10^3/uL (1.2-6.7); Basophils % 0.6 %; Eosinophils % 11.4 %; HCT 33.3 % (40.0-50.0); Immature Grans % 0.4 %; Lymphocytes % 7.5 %; MCH 33.6 pg (27.0-33.0); MCV 102 fL (80-95); MPV 11.3 fL (8.0-11.0); Monocytes % 10.8 %; Neutrophils % 69.3 %; Platelet Count 204 10^3/uL (130-400); RBC 3.27 10^6/uL (4.36-5.78); RDW 14.5 % (11.8-14.1); RDW-SD 54.4 fL; WBC 5.18 10^3/uL (4.4-10.8)
[2025-01-01 09:36] LABS: ALT 7 U/L (16-63); AST 13 U/L (15-37); Alkaline Phosphatase 59 U/L (46-116); BUN 13 mg/dL (7-18); Bilirubin, Total 0.4 mg/dL (0.2-1.0); CREATININE 0.8 mg/dL (0.70-1.30); Chloride 105 mmol/L (98-107); Estimated GFR 97.61 (mL/min/1.73m2); Glucose 103 mg/dL (74-106); Magnesium 1.9 mg/dL; Potassium 3.9 mmol/L (3.5-5.1); Sodium 142 mmol/L (136-145); Total Protein 6.4 g/dL (6.4-8.2)
[2025-01-01] MEDS: Normal Saline Flush 10 ML SYR IVP (13:14)
[2025-01-15 08:34] LABS: CREATININE 0.7 mg/dL (0.70-1.30); Estimated GFR 101.62 (mL/min/1.73m2)
[2025-01-15] MEDS: Normal Saline Flush 10 ML SYR IVP (08:56)
== END 2025-01-15 23:59 | disposition home or self-care (01) ==
LOC: INF 08:00
PROVIDERS: Preventive Medicine Undersea and Hyperbaric Medicine; Visit Provider Internal Medicine Hematology
DX: C01 Malignant neoplasm of base of tongue (principal); C76.0 Malignant neoplasm of head, face and neck
CPT/HCPCS: 36591; 80053; 82565; 83735; 85025

== ENCOUNTER 2025-01-22 03:06 | Outpatient (RCR) | payer MEDICARE, MEDICAID, SELFPAY ==
[2025-01-22] MEDS: Normal Saline Flush 10 ML SYR IVP (09:06)
[2025-01-22 09:09] LABS: Abs Immature Grans 0.03 10^3/uL (0.0-0.06); Absolute Basophil Count 0.01 10^3/uL (0.0-0.2); Absolute Eosinophil Count 0.01 10^3/uL (0.0-0.7); Absolute Lymphocyte Count 0.74 10^3/uL (1.2-3.4); Absolute Monocyte Count 0.39 10^3/uL (0.1-0.8); Absolute Neutrophil Count 3.51 10^3/uL (1.2-6.7); Basophils % 0.2 %; Eosinophils % 0.2 %; HCT 32.6 % (40.0-50.0); Immature Grans % 0.6 %; Lymphocytes % 15.8 %; MCH 34.8 pg (27.0-33.0); MCHC 33.7 % (32.0-36.0); MCV 103 fL (80-95); MPV 12.2 fL (8.0-11.0); Monocytes % 8.3 %; Neutrophils % 74.9 %; Platelet Count 148 10^3/uL (130-400); RBC 3.16 10^6/uL (4.36-5.78); RDW-SD 49.7 fL; WBC 4.69 10^3/uL (4.4-10.8)
[2025-01-22 09:31] LABS: ALT 12 U/L (16-63); AST 13 U/L (15-37); Albumin 3.1 g/dL (3.4-5.0); Alkaline Phosphatase 47 U/L (46-116); Anion Gap 5.7 mmol/L (3-11); BUN 24 mg/dL (7-18); Bilirubin, Total 0.3 mg/dL (0.2-1.0); CO2 32.3 mmol/L (21.0-32.0); CREATININE 0.7 mg/dL (0.70-1.30); Calcium 8.9 mg/dL (8.5-10.1); Chloride 106 mmol/L (98-107); Estimated GFR 101.62 (mL/min/1.73m2); Glucose 87 mg/dL (74-106); Potassium 3.7 mmol/L (3.5-5.1); Sodium 144 mmol/L (136-145); Total Protein 6.4 g/dL (6.4-8.2)
== END 2025-02-14 23:59 | disposition home or self-care (01) ==
LOC: INF 03:06
PROVIDERS: PCP Nurse Practitioner Family; Visit Provider Internal Medicine Hematology
DX: C01 Malignant neoplasm of base of tongue (principal)
CPT/HCPCS: 36591; 80053; 83735; 85025

== ENCOUNTER 2025-07-11 03:33 | Outpatient (CLI) | payer MEDICARE, MEDICAID, SELFPAY ==
--- NOTE | 2025-07-11 15:13 | DI.RAD_ITS ---
Exam(s) RF MODIFIED SPEECH BA SWALLOW TECHNIQUE: Modified barium swallow was performed in conjunction with speech pathology. CONTRAST MATERIAL: Oral barium contrast was administered. COMPARISON: RF RF MODIFIED SPEECH BA SWALLOW from 12/27/2024 FINDINGS: Note that this is not a dedicated esophagram, distal esophagus not evaluated. There is no evidence of aspiration of thick or thin liquids, barium coated apple sauce or barium paste. Penetration with thin and thick liquids was noted during the examination. The epiglottis appears thickened and may be edematous. There is sluggish movement of the epiglottis.. Speech pathology report to follow. . . . IMPRESSION: There is no evidence of aspiration however there was evidence of penetration with thin and thick liquids. RADIATION DOSE DELIVERED: casimiro Mckinney=14 mGy
[2025-07-11] MEDS: Barium Sulfate Oral Paste 40% W/V 230 ML TUBE PO (15:15)
[2025-07-11] MEDS: Barium Sulfate 81% w/w for Oral Suspension 148 GM BTL PO (15:16)
[2025-07-11] MEDS: Barium Sulfate 40% W/V 240 ML BTL PO (15:17)
--- NOTE | 2025-07-11 15:17 | ST.MBS_ITS ---
Date of Service Date of service: 07/11/25 Time of Service: 15:17 Modified Barium Swallow Study Findings: Video fluoroscopic Swallowing Evaluation (VFSE) / Modified Barium Swallow Study (MBSS) Speech Language Pathology Report Patient referred for VFSE/MBSS from Dr. Gomez given continued difficulty progressing to solid foods after completion of chemo-radiation treatment for head/neck cancer. 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 He completed radiation therapy and l ow dose concurrent weekly cisplatin in late October 2024. Patient also with a history of eusinophilic esphagitis and esophageal stenosis, followed by GI for dilations in years past. At baseline he had difficulty with dry solids. Patient had a feeding tube placed for treatment but did not use it initially. During the course of treatment, patient became fully reliant on G-tube for nutrition and has had a difficulty time transitioning back to PO. He had MBSS in December of 2024. At that time he presented with poor tongue base retraction, poor epiglottic movement, and reduced UES distension with presence of CP bar and suspected proximal esophageal webbing. Patient tolerated purees with extra swallows and liquid wash at that time but was incredibly sensate to residue, exacerbated by xerostomia and dysguesia. At this time he continues to report consistent sx, difficulty swallowing solids and even thicker liquids due to sensation of residue, phlegm. He carries a spit cup with him due to being unable to completely swallow his saliva. He denies s/sx aspiration. He has increased his PO intake to 4 ensure/day, which is an improvement, previously he was largely intolerant of it due to sensation of it sticking in his throat despite MBSS findings that he could tolerate thin and thick liquids with extra swallows and strategies. He states he has gained 20 lbs in the last 8 weeks and is hoping to wean off his remaining 2 cartons of tube feeds daily by increasing his PO liquid nutrition. IMPRESSIONS: Patient presents with largely stable dysphagia at this time as compared with previous study, with some increased pharyngeal residue over previous but improved/lower risk of aspiration. Swallow is characterized by reduced tongue- base retraction and altered epiglottic shape with reduced inversion which inhibits pharyngeal stripping wave, and creates valving of hyperpharynx resulting in significant vallecular and oropharyngeal residue with tendency to immediately initiate voluntary retrograde flow of vallecular residue back into the oral cavity. At the same time, he has relatively preserved hyo-laryngeal movement resulting in good airway protection during the swallow. No aspiration occurred during the study and only scant flash penetration, primarily of pyriform residue which dripped into the larynx (shallow) after the swallow but cleared with cued throat clears. Patient is able to reduce post-swallow residue with additional swallows, but given valving and reduced positive pressure in hyperpharyx he relies on regurgitation/expectoration of a small volume of each bolus to feel comfortable again. Continue to visualize small CP bar and small ?proximal esophageal webbing which likely further alter bolus flow and pressure dynamics. Remains very sensate to residue and even though is able to clear a majority of each bolus with additional swallows, subjectively reports this as an inability to swallow. Patient was unwilling to progress past puree again this date, despite offer of strategies such as liquid wash, etc. Dysphagia diagnosis: Moderate chronic oropharyngeal and esophageal dysphagia in setting of radiation fibrosis and exacerbated by xerostomia , esophageal changes, and sensory components. Recommend GI for consideration of esophageal dilation. RECOMMENDATIONS: Diet Texture Recommendation:? IDDSI LEVEL SOLIDS 5-Minced & Moist Solids mixed with 4-Pureed Solids 4-Pureed Solids 3-Liquidized Solids LIQUIDS 0-Thin Liquids Please see further details at?[email or web address] MEDICATIONS Crushed, or liquid formulations with 0-Thin Liquids or 4-Purees Diet texture modification is per patient's preference; please adjust diet textures at patient's discretion & collaboration with care team. Do not alter medications (e.g., cut)? without advice from your MD/Provider or pharmacist. Risk Management Strategies:? Behavioral reflux precautions, including upright position during + 90 mins after meals. Alternate solids/liquids as able Multiple swallows per bolus to encourage clearance of pharyngeal stasis/residue Control risk factors for aspiration pneumonia via (a) thorough oral hygiene & (b) maintaining physical mobility as tolerated Swallow prognosis is guarded given: Age, Severity, Time since onset, Motivation, Relative dose of Chemotherapy and/or radiation treatment, Surgical/anatomical factors, OBJECTIVE Videofluoroscopic Swallow Evaluation (VFSE/MBSS) was conducted in the lateral[ and [id number]] projection by Speech-Language Pathologist, in collaboration with Radiologist, to evaluate oropharyngeal swallow function. Oral-Motor/Peripheral Screening: N/A: Completed in prior clinic visit/with treating clinician Anatomic view under fluoroscopy: epiglottic changes in setting of radiation tx. PO Barium Contrast Trials Oral barium water-soluble contrast was administered as follows: IDDSI Level 0 Varibar thin liquid (40% w/v) IDDSI Level 2 Varibar nectar thick/mildly thick liquid (40% w/v) IDDSI Level 4 Varibar pudding/pureed/extremely thick (40% w/v) MBSImP Component Scores: COMPONENT Scale SCORE Previous SCORE 1 Lip closure (0-4) 0 Resulted in no labial escape 0 Resulted in no labial escape 2 Hold Position (0-3) 0 Maintained a cohesive bolus between tongue to palatal seal 0 Maintained a cohesive bolus between tongue to palatal seal 3 Bolus Preparation (0-4) NA 4 Solid withheld due to patient safety concerns related to oral impairment 4 Bolus Transport (0-4) 2 Was with slowed tongue motion 2 Was with slowed tongue motion 5 Oral Residue (0-4) 2 Was a collection on oral structures 2 Was a collection on oral structures 6 Swallow Initiation (0-4) 1 Occurred when the bolus head was in valleculae 1 Occurred when the bolus head was in valleculae 7 Soft Palate Elevation (0-4) 0 Resulted in no bolus between soft palate and the pharyngeal wall 0 Resulted in no bolus between soft palate and the pharyngeal wall 8 Laryngeal Elevation (0-3) 0 Demonstrated complete superior movement of thyroid cartilage with complete approximation of arytenoids to epiglottic petiole 1 Was decreased with partial superior movement of thyroid cartilage/partial approximation of arytenoids to epiglottic petiole 9 Anterior Hyoid Motion (0-2) 1 Demonstrated partial anterior movement 1 Demonstrated partial anterior movement 10 Epiglottic Movement (0-2) 2 Resulted in no inversion 1 Resulted in partial inversion 11 Laryngeal Closure (0-2) 0 Was complete with no air or contrast in laryngeal vestibule 0 Was complete with no air or contrast in laryngeal vestibule 12 Pharyngeal Stripping Wave (0-2) 1 Was present, but diminished 1 Was present, but diminish ed 13 Pharyngeal Contraction (0-3) NA 1 Was incomplete, with presence of pseudodiverticulae 14 PES Opening (0-3) 1 Demonstrated partial distension/ partial duration, with partial obstruction of flow 1 Demonstrated partial distension/ partial duration, with partial obstruction of flow 15 Tongue Base Retraction (0-4) 3 Allowed a wide column of contrast or air between the retracted tongue base and the posterior pharyngeal wall 3 Allowed a wide column of contrast or air between the retracted tongue base and the posterior pharyngeal wall 16 Pharyngeal Residue (0-4) 2 Was a collection of residue within or on pharyngeal structures 2 Was a collection of residue within or on pharyngeal structures 17 Esophageal Clearance (0-4) NA 2 Resulted in esophageal retention with retrograde flow below pharyngoesophageal segment Penetration-Aspiration Scale: COMPONENT Scale SCORE Previous SCORE 1 Thin liquid (1-8) 2 Contrast entered the airway, remained above the vocal folds, and was ejected from the airway. 8 Contrast entered the airway, passed below the vocal folds, and no effort was made to eject. 2 [place] thick (1-8) 1 Contrast did not enter the airway 1 Contrast did not enter the airway 3 Honey thick (1-8) NA NA 4 Pudding thick (1-8) 1 Contrast did not enter the airway 1 Contrast did not enter the airway 5 Cookie (1-8) NA NA DIGEST: COMPONENT Scale SCORE Previous SCORE 1 Thin Max PAS (1-8) 2 Contrast entered the airway, remained above the vocal folds, and was ejected from the airway. 8 Contrast entered the airway, passed below the vocal folds, and no effort was made to eject. 2 [place] Max PAS (1-8) 1 Contrast did not enter the airway 1 Contrast did not enter the airway 3 Honey Max PAS (1-8) NA NA 4 Liquid Max PAS (1-8) 2 Maximum PAS Score over all liquid trials 8 5 Liquid Max Residue (0-3) 2 50 - 90% 0 below 10% 6 Pudding Max PAS (1-8) 1 Contrast did not enter the airway 1 Contrast did no t enter the airway 7 Pudding Max Residue (0-3) 2 50 - 90% 1 10 - 49% 8 Cracker Max PAS (1-8) NA NA 9 Cracker Max Residue (0-3) NA NA 10 Frequency if PAS >= 3 (0-3) NA 1 Single+ (max PAS 7-8 with additional PAS 5-6) 11 Amount if PAS >= 5 (0-1) NA 0 Not gross Results: COMPONENT Scale SCORE Previous SCORE 1 SAFETY GRADE (0-4) 0 Safety grade for swallowing based on patterns of aspiration or laryngeal penetration 2 2 EFFICIENCY GRADE (0-4) 3 Efficiency grade of swallowing based on patterns of pharyngeal residue 1 3 DIGEST (0-4) 2 Severity grade of pharyngeal dysphagia: 0 - Normal, 1 - Mild, 2 - Moderate, 3 - Severe, 4 - Life threatening 2 4 Max Exam PAS (1-8) 2 Maximum PAS Score over all bolus trials 8 5 Max Exam Residue (0-3) 2 Maximum Exam Residue over all bolus trials 1 [place] Pharyngeal Residue Severity Rating Scale (YPRS) (Sarah, et al, 2015) Vallecula Residue Severity V Severe >50% Filled to epiglottic rim Pyriform Sinus Residue Severity III Mild 5-25% Up wall to quarter full Trialed Compensatory Strategies & Outcome: Maneuvers Successful (+) Unsuccessful (-) Postures Successful (+) Unsuccessful (-) 3 second Preparatory Set? ?+/- Chin Tuck Posture? ? Cough? ? Posterior Head tilt?? ?- ? Reflexive? Cued? Throat Clear? ? Head Tilt to? Reflexive? Left? Cued? ?+ ? Right? ? Saliva swallow? ?+ Head Turn/Rotate to? ? Supraglottic Swallow? Left? ? Super-supraglottic Swallow? Right? ? Bolus Modifications Successful (+) Unsuccessful (-) Delivery/Alternating Consistencies ? Follow with Liquid Wash + (for oral transit of sticky puree) ? Follow with Solid Bolus? Delivery/Via Straw? ? Reduced Volume? ?- (for puree) Reduced Rate of Intake? ? Increased Viscosity? ?+/- Other:?? ? Thank you for allowing us to take part in this patient's care. Please feel free to contact the [facility] Speech Language Pathology Department with any questions/concerns.
== END 2025-07-11 03:53 ==
LOC: DI 03:33
PROVIDERS: PCP Nurse Practitioner Family; Visit Provider Preventive Medicine Undersea and Hyperbaric Medicine
DX: C76.0 Malignant neoplasm of head, face and neck (principal); R13.12 Dysphagia, oropharyngeal phase; R13.14 Dysphagia, pharyngoesophageal phase
CPT/HCPCS: 92526; 74221

== ENCOUNTER 2025-07-30 03:36 | Outpatient (CLI) | payer MEDICARE, MEDICAID, SELFPAY ==
[2025-07-30 08:16] LABS: Abs Immature Grans 0.03 10^3/uL (0.0-0.06); HCT 40.4 % (40.0-50.0); HGB 13.7 g/dL (13.5-17.5); Immature Grans % 0.7 %; MCH 33.9 pg (27.0-33.0); MCHC 33.9 % (32.0-36.0); MCV 100 fL (80-95); MPV 11.6 fL (8.0-11.0); Platelet Count 143 10^3/uL (130-400); RBC 4.04 10^6/uL (4.36-5.78); RDW 12.3 % (11.8-14.1); RDW-SD 45.2 fL; WBC 4.60 10^3/uL (4.4-10.8)
[2025-07-30 09:02] LABS: ALT 18 U/L (16-63); AST 24 U/L (15-37); Albumin 3.5 g/dL (3.4-5.0); Alkaline Phosphatase 68 U/L (46-116); Anion Gap 8.1 mmol/L (3-11); BUN 26 mg/dL (7-18); Bilirubin, Total 0.6 mg/dL (0.2-1.0); CO2 32.9 mmol/L (21.0-32.0); Calcium 9.0 mg/dL (8.5-10.1); Chloride 103 mmol/L (98-107); Estimated GFR 82.49 (mL/min/1.73m2); Glucose 114 mg/dL (74-106); Magnesium 2.1 mg/dL (1.8-2.4); Potassium 3.9 mmol/L (3.5-5.1); Sodium 144 mmol/L (136-145); Total Protein 7.2 g/dL (6.4-8.2)
== END 2025-07-30 03:37 | disposition home or self-care (01) ==
LOC: LBO 03:37
PROVIDERS: PCP Nurse Practitioner Family; Visit Provider Internal Medicine Hematology
DX: C01 Malignant neoplasm of base of tongue (principal)
CPT/HCPCS: 36415; 80053; 83735; 85025